=== PATIENT | female | born 1990 | race Caucasian/White ===

== ENCOUNTER 2016-12-18 11:27 | Emergency (ER) | payer SELFPAY ==
[~2016-12-18] VITALS: Ht 152.4 cm; Wt 83.9 kg
[2016-12-18 11:36] VITALS: BP_SYST 159
[2016-12-18 12:00] VITALS: BP_SYST 122
== END 2016-12-18 12:00 | disposition home or self-care (01) ==
LOC: SED 11:27
DX: H66.93 Otitis media, unspecified, bilateral (principal); J02.9 Acute pharyngitis, unspecified
CPT/HCPCS: 99283